=== PATIENT | male | born 1990 | race Caucasian/White ===

== ENCOUNTER 2017-04-17 14:11 | Outpatient (CLI) | payer SELFPAY ==
[~2017-04-17] VITALS: Ht 188 cm; Wt 74.8 kg
== END 2017-04-17 15:05 ==
LOC: PREOP 14:11
PROVIDERS: ATTEND Surgery
DX: Z01.818 Encounter for other preprocedural examination (principal); L72.3 Sebaceous cyst

== ENCOUNTER 2017-04-20 08:03 | Day surgery (SDC) | payer OTHER ==
[~2017-04-20] VITALS: Ht 188 cm; Wt 74.8 kg
[2017-04-20] MEDS ORDERED: ceFAZolin 1,000 MG (ANCEF) VIAL ONE (08:30)
[2017-04-20] MEDS ORDERED: NS (IVPB) 50 ML ONE (08:30)
[2017-04-20 08:45] VITALS: BP 146/67
[2017-04-20] MEDS ORDERED: LACTATED RINGERS 1,000 ML IV ONE ×2 (08:45→09:20)
[2017-04-20] MEDS ORDERED: ceFAZolin 1 GM/NS 50 ML IVPB IV ONE ×2 (08:45)
[2017-04-20] MEDS ORDERED: SEVOFLURANE (ULTANE) 15 ML INHAL SOLN ONE ×3 (09:20→09:54)
[2017-04-20] MEDS ORDERED: DEXAMETHASONE PF 10 MG/ML (DECADRON) VIAL ONE (09:20)
[2017-04-20] MEDS ORDERED: proPOfol 200 MG/20 ML (DIPRIVAN) VIAL IV ONE (09:20)
[2017-04-20] MEDS ORDERED: LIDOCAINE PF 2% 5 ML (XYLOCAINE) VIAL ONE (09:20)
[2017-04-20] MEDS ORDERED: MIDAZOLAM 2 MG/2 ML (VERSED) VIAL ONE (09:20)
[2017-04-20] MEDS ORDERED: HURRICAINE EXT TUBE (BENZOCAINE) ONE (09:20)
[2017-04-20] MEDS ORDERED: fentaNYL INJECTION 100 MCG/2 ML AMP ONE (09:21)
[2017-04-20] MEDS ORDERED: BUP/EPI 0.25% 1:200,000 (MARCAINE) 10 ML VIAL IJ ONE (09:24)
[2017-04-20] MEDS ORDERED: ATRACURIUM 50 MG/5 ML (TRACRIUM) IV ONE (09:24)
--- NOTE | 2017-04-20 09:33 | Progress Note-Pre Operative ---
Pre-Operative Progress Note H&P Reviewed The H&P was reviewed, patient examined and no changes noted. Date Seen by Provider: Apr 20, 2017 Time Seen by Provider: :33 Date H&P Reviewed: Apr 20, 2017 Time H&P Reviewed: :33 Pre-Operative Diagnosis: Sebaceous cyst left mandibular region HARLEEN LOPEZ MD Apr 20, 2017 9:33 am
[2017-04-20] MEDS ORDERED: HYDR-3812 PO (10:08)
--- NOTE | 2017-04-20 10:08 | Progress Note-Post Operative ---
Post-Operative Progess Note Surgeon (s)/Telecommunications Analyst (s) Surgeon HARLEEN LOPEZ MD Telecommunications Analyst: not applicable Pre-Operative Diagnosis Sebaceous cyst left mandibular region Post-Operative Diagnosis same Procedure & Operative Findings Date of Procedure 04/20/17 Procedure Performed/Findings excision Anesthesia Type Gen. Estimated Blood Loss Estimated blood loss (mL): minimal Specimens/Packing Specimens Removed sebaceous cyst HARLEEN LOPEZ MD Apr 20, 2017 10:08 am
--- NOTE | 2017-04-20 10:09 | Discharge Inst-Simple/Standard ---
Discharge Inst-Standard Discharge Medications New, Converted or Re-Newed RX: RX on Chart Patient Instructions/Follow Up Plan of Care/Instructions/FU: dressings off in 48 hours. Follow-up when necessary. No sutures to be removed Activity as Tolerated: Yes Discharge Diet: No Restrictions HARLEEN LOPEZ MD Apr 20, 2017 10:09 am
--- NOTE | 2017-04-20 10:28 | OPERATIVE REPORT ---
DATE OF SERVICE: 04/20/2017 PREOPERATIVE DIAGNOSIS: A 2 cm sebaceous cyst, left mandibular region. POSTOPERATIVE DIAGNOSIS: A 2 cm sebaceous cyst, left mandibular region. OPERATION: Excision. SURGEON: Harleen Lopez MD ANESTHESIA: General anesthesia. BLOOD LOSS: Minimal. FLUIDS: 800 mL of crystalloid. TYPE OF WOUND: Type 1 (clean wound). INDICATION FOR PROCEDURE: This gentleman presented with a sebaceous cyst involving the left mandibular region. He was offered excision under general anesthetic. Informed consent was obtained after reviewing the operative details and highlighting the complications of postop hematoma, wound infection and a very low incidence of injury to the marginal mandibular nerve. DESCRIPTION OF PROCEDURE: He was placed supine on the operating table and general anesthesia induced using a laryngeal mask airway. A gram of Ancef was administered intravenously as prophylaxis against wound infection. The left mandibular region was prepared and draped in the usual sterile manner. Pre-emptive analgesia was established using 0.5% Marcaine with epinephrine. An elliptical incision about 3.5 cm long was made and the cyst excised intact. Hemostasis was achieved using cautery and the incision closed using 3-0 Vicryl for the subcutaneous tissue and 4-0 Vicryl for skin, in a subcuticular fashion. He tolerated the procedure well, was extubated in the operating room and taken to the recovery room in stable condition. Addison, sponges and instruments were correct at the end of the operation. Job ID: [id number] DocumentID: [id number] Dictated Date: 04/20/2017 10:07:38 Lining Maker Date: 04/20/2017 10:27:16 Dictated By: HARLEEN LOPEZ MD [facility]
[2017-04-20] MEDS ORDERED: morphine INJ 10 MG/ML 1ML (SYR OR VIAL) IVP PRN (10:30)
[2017-04-20 11:00] VITALS: BP 123/73
[2017-04-20 11:30] VITALS: BP 130/80
[2017-04-20 11:40] VITALS: BP 130/80
== END 2017-04-20 11:40 | disposition home or self-care (01) ==
LOC: SDC 08:03
PROVIDERS: ATTEND Surgery
DX: L72.3 Sebaceous cyst (principal)
CPT/HCPCS: 87081

== ENCOUNTER 2017-12-17 19:14 | Emergency (ER) | payer SELFPAY ==
[~2017-12-17] VITALS: Ht 185.4 cm; Wt 69.9 kg
[~2017-12-17 19:14] MED LIST: ACHD5005 PO
--- OUTSIDE RECORDS SUMMARY | 2017-12-17 19:20 | XMS REPORT | Continuity of Care Document ---
Author Author [facility] Organization [facility] Address Unknown Phone Unavailable Allergies Active Description Code Type Severity Reaction Onset Reported/Identified Relationship to Patient Clinical Status Yes No Known Drug Allergies [id number] Drug Allergy Unknown N/A 04/17/2017 Medications There is no data. Problems Date Dx Coded Attending Type Code Diagnosis Diagnosed By 04/17/2017 Ot 272.4 HYPERLIPIDEMIA NEC/NOS 04/17/2017 ADAM ABDALLA MD Ot 717.9 INT DERANGEMENT KNEE NOS 04/17/2017 GLENDY CHINCHILLA Ot 427.61 ATRIAL PREMATURE BEATS 04/17/2017 GLENDY CHINCHILLA Ot 786.50 CHEST PAIN NOS 04/17/2017 GLENDY CHINCHILLA Ot V17.3 FAM HX-ISCHEM HEART DIS 04/17/2017 JESSICA ACEVEDO, HARLEEN Chinchilla Ot L72.3 SEBACEOUS CYST 04/17/2017 JESSICA ACEVEDO, HARLEEN Chinchilla Ot Z01.818 ENCOUNTER FOR OTHER PREPROCEDURAL EXAMIN 04/17/2017 Ot 272.4 HYPERLIPIDEMIA NEC/NOS 04/17/2017 ADAM ABDALLA MD Ot 717.9 INT DERANGEMENT KNEE NOS 04/17/2017 GLENDY CHINCHILLA Ot 427.61 ATRIAL PREMATURE BEATS 04/17/2017 GLENDY CHINCHILLA Ot 786.50 CHEST PAIN NOS 04/17/2017 GLENDY CHINCHILLA Ot V17.3 FAM HX-ISCHEM HEART DIS 04/20/2017 Ot 272.4 HYPERLIPIDEMIA NEC/NOS 04/20/2017 ADAM ABDALLA MD Ot 717.9 INT DERANGEMENT KNEE NOS 04/20/2017 GLENDY CHINCHILLA Ot 427.61 ATRIAL PREMATURE BEATS 04/20/2017 GLENDY CHINCHILLA Ot 786.50 CHEST PAIN NOS 04/20/2017 GLENDY CHINCHILLA Ot V17.3 FAM HX-ISCHEM HEART DIS 04/20/2017 JESSICA ACEVEDO, HARLEEN Ch[place]illa Ot L72.3 SEBACEOUS CYST 04/23/2017 JESSICA ACEVEDO, HARLEEN Ch[place]illa Ot L72.3 SEBACEOUS CYST 04/28/2017 JESSICA ACEVEDO, HARLEEN Chinchilla Ot L72.3 SEBACEOUS CYST 05/23/2017 JESSICA ACEVEDO, HARLEEN Chinchilla Ot L72.3 SEBACEOUS CYST Procedures There is no data. Results Test Result Range Methicillin resistant Staphylococcus aureus (MRSA) screening culture - 08:40 Methicillin resistant Staphylococcus aureus (MRSA) screening culture NEG NRG Encounters ACCT No. Visit Date/Time Discharge Status Pt. Type Provider Facility Loc./Unit Complaint [id number] 04/20/2017 08:03:00 04/20/2017 11:40:00 DIS Outpatient HARLEEN LOPEZ MD [facility] SDC SEBACEOUS CYST [id number] 04/17/2017 14:11:00 04/17/2017 15:05:00 DIS Outpatient HARELEN LOPEZ MD [facility] PREOP SEBACEOUS CYST [id number] 01/11/2016 15:30:00 01/11/2016 23:59:59 CLS Outpatient GUILHERME VAZ [facility] QUICK [id number] 06/25/2014 08:36:00 06/25/2014 23:59:59 CLS Outpatient GLENDY CHINCHILLA [facility] LAB CAD,PAC,CP [id number] 01/08/2014 15:06:00 01/08/2014 23:59:59 CLS Outpatient ADAM ABDALLA MD [facility] RAD DERANGMENT OF KNEE [id number] 06/16/2013 16:25:00 06/16/2013 23:59:59 CLS Outpatient [id number] 05/27/2013 13:03:00 05/27/2013 23:59:59 CLS Outpatient [id number] 04/02/2013 16:23:00 04/02/2013 23:59:59 CLS Outpatient [id number] 12/17/2017 19:16:00 ACT Emergency CESAR ROSE MD [facility] ER "BAD ITCH SPOT IN THROAT",POSS FEVER [id number] 04/17/2012 10:17:00 Document Registration
[2017-12-17] MEDS ORDERED: NS IV 1000 ML 1,000 ML IV ONE (21:08)
[2017-12-17 21:15] LABS: BASOPHILS % (AUTO) 0 % (0-10); EOSINOPHILS # (AUTO) 0.2 10^3/uL (0.0-0.3); EOSINOPHILS % (AUTO) 2 % (0-10); HEMATOCRIT 44 % (40-54); HEMOGLOBIN 15.1 G/DL (13.3-17.7); LYMPHOCYTES # (AUTO) 1.4 X 10^3 (1.0-4.0); LYMPHOCYTES % (AUTO) 15 % (12-44); MEAN CORPUSCULAR HEMOGLOBIN 32 PG (25-34); MEAN CORPUSCULAR HGB CONC 34 G/DL (32-36); MEAN CORPUSCULAR VOLUME 93 FL (80-99); MEAN PLATELET VOLUME 10.4 FL (7.4-10.4); MONOCYTES # (AUTO) 1.1 X 10^3 (0.0-1.0); MONOCYTES % (AUTO) 12 % (0-12); NEUTROPHILS # (AUTO) 6.5 X 10^3 (1.8-7.8); NEUTROPHILS % (AUTO) 70 % (42-75); PLATELET COUNT 233 10^3/uL (130-400); RED BLOOD COUNT 4.71 10^6/uL (4.35-5.85); RED CELL DISTRIBUTION WIDTH 12.3 % (10.0-14.5); WHITE BLOOD COUNT 9.3 10^3/uL (4.3-11.0)
[2017-12-17] MEDS ORDERED: ACETAMINOPHEN 500 MG TAB (TYLENOL) PO PRN (21:15)
[2017-12-17 21:22] LABS: PROTHROMBIN TIME PATIENT 13.5 SEC (12.2-14.7)
[2017-12-17 21:29] LABS: BILIRUBIN,URINE NEGATIVE (NEGATIVE); CLARITY,URINE CLEAR; COLOR,URINE YELLOW; GLUCOSE, URINE (UA) NEGATIVE (NEGATIVE); KETONES,URINE NEGATIVE (NEGATIVE); LEUKOCYTE ESTERASE ,URINE 1+ (NEGATIVE); NITRITE,URINE NEGATIVE (NEGATIVE); PH,URINE 7 (5-9); PROTEIN,URINE NEGATIVE (NEGATIVE); UROBILINOGEN,URINE NORMAL (NORMAL)
[2017-12-17 21:33] LABS: ALBUMIN 4.4 GM/DL (3.2-4.5); BILIRUBIN,TOTAL 0.4 MG/DL (0.1-1.0); CALCIUM 9.5 MG/DL (8.5-10.1); CREATININE SERUM 1.42 MG/DL (0.60-1.30); POTASSIUM 3.8 MMOL/L (3.6-5.0); TOTAL PROTEIN 7.8 GM/DL (6.4-8.2)
[2017-12-17 21:41] LABS: AMORPHOUS SEDIMENT,UR FEW AMOR URATES /LPF; WBC,URINE 0-2 /HPF
--- NOTE | 2017-12-17 22:26 | ED Cough/URI ---
General Chief Complaint: Fever-Adult/Adol Stated Complaint: "BAD ITCH SPOT IN THROAT",POSS FEVER Nursing Triage Note: PATIENT STATES THAT HE HAS HAD FEVERS OFF AND ON X5 DAYS. ON SUNDAY HE NOTICED A SORENESS IN HIS THROAT THAT HAS NOT GONE AWAY. Source: patient Exam Limitations: no limitations History of Present Illness Date Seen by Provider: Dec 17, 2017 Time Seen by Provider: 21:24 Initial Comments Here with report of fever on and off for the last 5 days and was actually doing better on Sunday but came back significantly today. Arrives pale with a fever. Denies breathing problems. Does complain of sore throat and has significant cough that he is worried about having pneumonia. Timing/Duration: week, getting worse Severity/Quality: moderate, dry cough Prior Episodes/Possible Cause: occasional episodes Associated Symptoms: cough, fever/chills, muscle aches, nasal congestion, nasal drainage, sore throat Allergies and Home Medications Allergies Coded Allergies: No Known Drug Allergies (Unverified , 04/17/17) Home Medications Hydrocodone Bit/Acetaminophen 1 Each Tablet, 1-2 TAB PO 4-6HR PRN for PAIN-MILD TO MODERATE, #20 Ref 0 Prescribed by: HARLEEN LOPEZ on 04/20/17 1008 Constitutional: see HPI, chills, fever EENTM: nose congestion, throat pain Respiratory: No short of breath, No wheezing Cardiovascular: no symptoms reported Gastrointestinal: no symptoms reported Genitourinary: no symptoms reported Musculoskeletal: see HPI, muscle pain, No muscle stiffness Skin: no symptoms reported All Other Systems Reviewed Negative Unless Noted: Yes Past Fsbcxkb-Kujmxm-Yfhgpn Hx Patient Social History Alcohol Use: Rarely Uses Recreational Drug Use: No Smoking Status: Never a Smoker 2nd Hand Smoke Exposure: No Recent Foreign Travel: No Contact w/Someone Who Travel: No Recent Infectious Disease Expo: No Recent Hopitalizations: No Seasonal Allergies Seasonal Allergies: No Surgeries History of Surgeries: Yes (wisdom teeth) Respiratory History of Respiratory Disorde: No Cardiovascular History of Cardiac Disorders: No Neurological History of Neurological Disord: No Gastrointestinal History of Gastrointestinal Di: No Musculoskeletal History of Musculoskeletal Dis: No Endocrine History of Endocrine Disorders: No Cancer History of Cancer: No Psychosocial History of Psychiatric Problem: No Integumentary History of Skin or Integumenta: No Blood Transfusions History of Blood Disorders: No Reviewed Nursing Assessment Reviewed/Agree w Nursing PMH: Yes Family Medical History Significant Family History: No Pertinent Family Hx Physical Exam Vital Signs Vital Sign - Last 12Hours 12/17/17 19:33 Temp 98.6 Pulse 86 Resp 20 B/P (MAP) 143/75 (97) Pulse Ox 95 O2 Delivery Room Air Capillary Refill : Less Than 3 Seconds General Appearance: WD/WN, no apparent distress HEENT: PERRL/EOMI, pharynx normal Neck: full range of motion, supple Respiratory: lungs clear, normal breath sounds Cardiovascular: regular rate, rhythm, no murmur Gastrointestinal: non tender, soft Extremities: non-tender, normal inspection Neurologic/Psychiatric: alert, oriented x 3 Skin: normal color, warm/dry Focused Exam Evaluation Lactate Level Laboratory Tests 12/17/17 21:20: Lactic Acid Level 0.89 Lactic Acid Level Laboratory Tests Test 12/17/17 21:20 Lactic Acid Level 0.89 MMOL/L (0.50-2.00) Progress/Results/Core Measures Suspected Sepsis Recent Fever Within 48 Hours: Yes Infection Criteria Present: Suspected New Infection New/Unexplained Altered Menta: No Sepsis Screen: No Definite Risk Sepsis Diagnosis: SIRS Temperature:98.6 Pulse: 86 Respiratory Rate: 20 Laboratory Tests 12/17/17 21:05: White Blood Count 9.3 Blood Pressure 143 /75 Mean: 97 Laboratory Tests 12/17/17 21:20: Lactic Acid Level 0.89 Laboratory Tests 12/17/17 21:05: Creatinine 1.42H, INR Comment 1.0, Platelet Count 233, Total Bilirubin 0.4 Results/Orders Lab Results Laboratory Tests Test 12/17/17 21:05 12/17/17 21:20 12/17/17 21:24 Range/Units White Blood Count 9.3 4.3-11.0 10^3/uL Red Blood Count 4.71 4.35-5.85 10^6/uL Hemoglobin 15.1 13.3-17.7 G/DL Hematocrit 44 40-54 % Mean Corpuscular Volume 93 80-99 FL Mean Corpuscular Hemoglobin 32 25-34 PG Mean Corpuscular Hemoglobin Concent 34 32-36 G/DL Red Cell Distribution Width 12.3 10.0-14.5 % Platelet Count 233 130-400 10^3/uL Mean Platelet Volume 10.4 7.4-10.4 FL Neutrophils (%) (Auto) 70 42-75 % Lymphocytes (%) (Auto) 15 12-44 % Monocytes (%) (Auto) 12 0-12 % Eosinophils (%) (Auto) 2 0-10 % Basophils (%) (Auto) 0 0-10 % Neutrophils # (Auto) 6.5 1.8-7.8 X 10^3 Lymphocytes # (Auto) 1.4 1.0-4.0 X 10^3 Monocytes # (Auto) 1.1 H 0.0-1.0 X 10^3 Eosinophils # (Auto) 0.2 0.0-0.3 10^3/uL Basophils # (Auto) 0.0 0.0-0.1 10^3/uL Prothrombin Time 13.5 12.2-14.7 SEC INR Comment 1.0 0.8-1.4 Activated Partial Thromboplast Time 31 24-35 SEC Sodium Level 141 135-145 MMOL/L Potassium Level 3.8 3.6-5.0 MMOL/L Chloride Level 103 98-107 MMOL/L Carbon Dioxide Level 26 21-32 MMOL/L Anion Gap 12 5-14 MMOL/L Blood Urea Nitrogen 16 7-18 MG/DL Creatinine 1.42 H 0.60-1.30 MG/DL Estimat Glomerular Filtration Rate 60 BUN/Creatinine Ratio 11 Glucose Level 107 H 70-105 MG/DL Calcium Level 9.5 8.5-10.1 MG/DL Total Bilirubin 0.4 0.1-1.0 MG/DL Aspartate Amino Transf (AST/SGOT) 22 5-34 U/L Alanine Aminotransferase (ALT/SGPT) 21 0-55 U/L Alkaline Phosphatase 70 40-136 U/L Total Protein 7.8 6.4-8.2 GM/DL Albumin 4.4 3.2-4.5 GM/DL Lactic Acid Level 0.89 0.50-2.00 MMOL/L Urine Color YELLOW Urine Clarity CLEAR Urine pH 7 5-9 Urine Specific [place] 1.020 1.016-1.022 Urine Protein NEGATIVE NEGATIVE Urine Glucose (UA) NEGATIVE NEGATIVE Urine Ketones NEGATIVE NEGATIVE Urine Nitrite NEGATIVE NEGATIVE Urine Bilirubin NEGATIVE NEGATIVE Urine Urobilinogen NORMAL NORMAL MG/DL Urine Leukocyte Esterase 1+ H NEGATIVE Urine RBC (Auto) NEGATIVE NEGATIVE Urine RBC NONE /HPF Urine WBC 0-2 /HPF Urine Crystals PRESENT H /LPF Urine Amorphous Sediment FEW AMBERLY URATES H /LPF Urine Bacteria NONE /HPF Urine Casts NONE /LPF Urine Mucus SMALL H /LPF Urine Culture Indicated NO Micro Results Microbiology 12/17/17 Influenza Types A,B Antigen (COCO) - Final, Complete My Orders Orders - CESAR ROSE MD Cbc With Automated Diff (12/17/17 21:08) Comprehensive Metabolic Panel (12/17/17 21:08) Lactic Acid Analyzer (12/17/17 21:08) Blood Culture (12/17/17 21:08) Sputum Culture (12/17/17 21:08) Ua Culture If Indicated (12/17/17 21:08) Protime With Inr (12/17/17 21:08) Partial Thromboplastin Time (12/17/17 21:08) Chest 1 View, Ap/Pa Only (12/17/17 21:08) O2 (12/17/17 21:08) Acetaminophen Tablet (Tylenol Tablet) (12/17/17 21:15) Saline Lock/Iv-Start (12/17/17 21:08) Vital Signs Adult Sepsis Patie Q1H (12/17/17 21:08) Remove Rings In Anticipation O (12/17/17 21:08) Influenza A And B Antigens (12/17/17 21:08) Ns Iv 1000 Ml (Sodium Chloride 0.9%) (12/17/17 21:08) Medications Given in ED Current Medications Medications Dose Ordered Sig/Fanta Route Start Time Stop Time Status Last Admin Dose Admin Acetaminophen 1,000 mg ONCE PRN PO 12/17/17 21:15 12/17/17 21:29 DC 12/17/17 21:28 1,000 MG Sodium Chloride 1,000 ml @ 0 mls/hr Q0M ONCE IV 12/17/17 21:08 12/17/17 21:10 DC 12/17/17 21:28 0 MLS/HR Vital Signs/I&O Vital Sign - Last 12Hours 12/17/17 19:33 Temp 98.6 Pulse 86 Resp 20 B/P (MAP) 143/75 (97) Pulse Ox 95 O2 Delivery Room Air Capillary Refill : Less Than 3 Seconds Blood Pressure Mean: 97 Progress Note : Progress Note Seen and evaluated. IV, labs, UA, normal saline 1 L bolus, chest x-ray, blood cultures and lactic acid due to presentation with pale and diaphoretic. Monitor patient. Tylenol 1 g by mouth given. 0: Chest x-ray negative. Overall much improved after fluids. Does appear to have mild dehydration and mild acute renal insufficiency. Patient is influenza positive. He has had this for 5 days and is outside of treatment window for Tamiflu currently. Discharged home with return precautions. Patient verbalize understanding instructions and agreement with plan. Diagnostic Imaging Diagonstic Imaging: Xray Plain Films/CT/US/NM/MRI: chest Comments No acute findings. 1 view chest x-ray Reviewed: Reviewed by Me Departure Impression Impression: Primary Impression: Influenza Additional Impression: Dehydration Disposition: 01 HOME, SELF-CARE Condition: Improved Departure-Patient Inst. Decision time for Depature: 22:27 Referrals: DIANA SCHWARTZ DO (PCP/Family) Primary Care Physician Patient Instructions: Dehydration, Adult (DC), Fever, Adult (DC), Flu, Adult ( DC) CESAR ROSE MD Dec 17, 2017 22:26
[2017-12-17 22:33] VITALS: BP 143/75
--- NOTE | 2017-12-18 07:35 | Diagnostic Imaging Report ---
INDICATION: Fever for 5 days, soreness and sore throat. EXAMINATION: Frontal chest, 12/17/2017. COMPARISON: 12/20/2009. FINDINGS: The cardiomediastinal silhouette is unremarkable. The pulmonary vasculature is within normal limits. The lungs and pleural spaces are clear. IMPRESSION: No evidence of an acute cardiopulmonary process. Dictated by: Dictated on workstation # [id number]
== END 2017-12-17 22:35 | disposition home or self-care (01) ==
LOC: EDUNIT# 19:14 → ER 19:16
DX: J11.1 Influenza due to unidentified influenza virus with other respiratory manifestations (principal); E86.0 Dehydration
CPT/HCPCS: 36415; 71045; 80053; 81000; 83605; 85025; 85610; 85730; 87040; 87804; 96360

== ENCOUNTER 2021-05-21 19:47 | Emergency (ER) | payer BC ==
[~2021-05-21] VITALS: Ht 185 cm; Wt 73.6 kg
--- NOTE | 2021-05-21 20:09 | ED General ---
General Chief Complaint: General Problems/Pain Stated Complaint: R SIDE LYMPH NODES SWOLLEN/R SIDE FACE/ARM NUMB Nursing Triage Note: Patient states he began having swollen lymph nodes on Sunday and tonight he has right shoulder pain extending down into his right arm. He advised that he was seen Sunday at [facility] and they stated his liver enzymes were elevated. He denies fever but states he felt like he had chills on sunday and had a headache. He advised that Dr. Vaughn told him that she felt it may be a tick related illness and if his symptoms worsened to be seen in the ER. Source of Information: Patient Exam Limitations: No Limitations History of Present Illness Date Seen by Provider: May 21, 2021 Time Seen by Provider: 20:07 Initial Comments To ER with some lymph nodes swelling to the right side of the neck since Sunday of this past week. They were initially swollen but then receded and then recurred. The left side seems unaffected. No pain with swallowing. Last week he did have some chills and a headache but that is been gone for several days. He saw [facility] and had some labs drawn showing elevated liver function tests within the past month. Strep was negative mono was pending. He is also had an ongoing rash for about 5 years that seems to be helped by Lotrimin ultra cream. Timing/Duration: 1-2 Days Severity: Moderate Associated Systoms: Denies Symptoms Allergies and Home Medications Allergies Coded Allergies: No Known Drug Allergies (Unverified , 04/17/17) Home Medications Fluconazole 150 Mg Tablet, 300 MG PO WEEK Prescribed by: JENNIE HICKS on 05/21/212037 Hydrocodone Bit/Acetaminophen 1 Each Tablet, 1-2 TAB PO 4-6HR PRN for PAIN-MILD TO MODERATE Prescribed by: HARLEEN LOPEZ on 04/20/17 1008 Selenium Sulfide 180 Ml Shampoo, 180 ML TP DAILY apply and leave on for 10 minutes during shower, then wash off. Prescribed by: JENNIE HICKS on 05/21/212037 Patient Home Medication List Home Medication List Reviewed: Yes Review of Systems Review of Systems Constitutional: see HPI; No chills, No fever, No malaise, No weakness EENTM: see HPI Respiratory: no symptoms reported; No cough, No short of breath Cardiovascular: no symptoms reported Genitourinary: no symptoms reported Musculoskeletal: no symptoms reported Skin: no symptoms reported Psychiatric/Neurological: No Symptoms Reported Hematologic/Lymphatic: No Symptoms Reported Immunological/Allergic: no symptoms reported Past Mdiohry-Lddbbq-Eyvvdx Hx Seasonal Allergies Seasonal Allergies: No Past Medical History Surgeries: Yes (wisdom teeth) Respiratory: No Cardiac: No Neurological: No Gastrointestinal: No Musculoskeletal: No Endocrine: No Cancer: No Psychosocial: No Integumentary: No Blood Disorders: No Family Medical History No Pertinent Family Hx Physical Exam Vital Signs Vital Signs - First Documented 05/21/21 19:56 Temp 36.6 Pulse 91 Resp 18 B/P (MAP) 151/109 (123) Pulse Ox 99 O2 Delivery Room Air Capillary Refill : Less Than 3 Seconds Height, Weight, BMI Height: 6'1.00" Weight: 154lbs. 0oz. [id number]; 21.00 BMI Method:Stated General Appearance: No Apparent Distress, WD/WN, Thin, Other (Alert and oriented no distress very pleasant. Vitals are stable. Does have some obvious swelling to the right side of his neck.) Eyes: Bilateral Eye Normal Inspection, Bilateral Eye PERRL, Bilateral Eye EOMI HEENT: PERRL/EOMI, TMs Normal, Normal ENT Inspection, Pharynx Normal Neck: Full Range of Motion; No Lymphadenopathy (L); Lymphadenopathy (R) Respiratory: Normal Breath Sounds, No Accessory Muscle Use, No Respiratory Distress Cardiovascular: Regular Rate, Rhythm, Normal Peripheral Pulses Gastrointestinal: Normal Bowel Sounds, Non Tender, Soft Extremity: Normal Capillary Refill, Normal Inspection Neurologic/Psychiatric: Alert, Oriented x3 Skin: Normal Color, Warm/Dry, Rash (He does have a faint slightly erythematous rash to his torso that looks to be a tinea versicolor) Progress/Results/Core Measures Suspected Sepsis SIRS Temperature: Pulse: 91 Respiratory Rate: 18 Laboratory Tests 05/21/21 20:19: White Blood Count 7.9 Blood Pressure 151 /109 Mean: 123 Laboratory Tests 05/21/21 20:19: Creatinine 1.42H, Platelet Count 168, Total Bilirubin 0.6 Results/Orders Lab Results Laboratory Tests Test 05/21/21 20:19 Range/Units White Blood Count 7.9 4.3-11.0 10^3/uL Red Blood Count 4.67 4.30-5.52 10^6/uL Hemoglobin 14.5 13.3-17.7 g/dL Hematocrit 43 40-54 % Mean Corpuscular Volume 93 80-99 fL Mean Corpuscular Hemoglobin 31 25-34 pg Mean Corpuscular Hemoglobin Concent 34 32-36 g/dL Red Cell Distribution Width 11.9 10.0-14.5 % Platelet Count 168 130-400 10^3/uL Mean Platelet Volume 10.1 9.0-12.2 fL Immature Granulocyte % (Auto) 0 % Neutrophils (%) (Auto) 24 L 42-75 % Lymphocytes (%) (Auto) 66 H 12-44 % Monocytes (%) (Auto) 8 0-12 % Eosinophils (%) (Auto) 1 0-10 % Basophils (%) (Auto) 2 0-10 % Neutrophils # (Auto) 1.9 1.8-7.8 10^3/uL Lymphocytes # (Auto) 5.2 H 1.0-4.0 10^3/uL Monocytes # (Auto) 0.6 0.0-1.0 10^3/uL Eosinophils # (Auto) 0.1 0.0-0.3 10^3/uL Basophils # (Auto) 0.1 0.0-0.1 10^3/uL Immature Granulocyte # (Auto) 0.0 0.0-0.1 10^3/uL Neutrophils % (Manual) 35 % Lymphocytes % (Manual) 13 % Monocytes % (Manual) 10 % Eosinophils % (Manual) 0 % Basophils % (Manual) 0 % Band Neutrophils 0 % Reactive Lymphocytes 42 % Smudge Cells SLIGHT Sodium Level 140 135-145 MMOL/L Potassium Level 4.4 3.6-5.0 MMOL/L Chloride Level 102 98-107 MMOL/L Carbon Dioxide Level 24 21-32 MMOL/L Anion Gap 14 5-14 MMOL/L Blood Urea Nitrogen 13 7-18 MG/DL Creatinine 1.42 H 0.60-1.30 MG/DL Estimat Glomerular Filtration Rate 59 BUN/Creatinine Ratio 9 Glucose Level 102 70-105 MG/DL Calcium Level 9.4 8.5-10.1 MG/DL Corrected Calcium 9.0 8.5-10.1 MG/DL Total Bilirubin 0.6 0.1-1.0 MG/DL Aspartate Amino Transf (AST/SGOT) 174 H 5-34 U/L Alanine Aminotransferase (ALT/SGPT) 266 H 0-55 U/L Alkaline Phosphatase 156 H 40-136 U/L C-Reactive Protein High Sensitivity 1.85 H 0.00-0.50 MG/DL Total Protein 8.0 6.4-8.2 GM/DL Albumin 4.5 3.2-4.5 GM/DL Monoscreen POSITIVE H NEGATIVE My Orders Orders - JENNIE HICKS APRN Cbc With Automated Diff (05/21/21 20:05) Comprehensive Metabolic Panel (05/21/21 20:05) Monotest (05/21/21 20:05) Hs C Reactive Protein (05/21/21 20:05) Ed Iv/Invasive Line Start (05/21/21 20:05) Iohexol Injection (Omnipaque 350 Mg/Ml 1 (05/21/21 20:30) Received Contrast (Hold Metformin- Contr (05/21/21 20:30) Ns (Ivpb) (Sodium Chloride 0.9% Ivpb Bag (05/21/21 20:30) Ct Neck (Soft Tissue) W (05/21/21 20:22) Manual Differential (05/21/21 20:19) Lactated Ringers (Lr 1000 Ml Iv Solution (05/21/21 20:45) Medications Given in ED Vital Signs/I&O 05/21/21 05/21/21 19:56 21:50 Temp 36.6 Pulse 91 86 Resp 18 16 B/P (MAP) 151/109 (123) 118/67 Pulse Ox 99 98 O2 Delivery Room Air Room Air Capillary Refill : Less Than 3 Seconds Blood Pressure Mean: 123 Departure Impression Primary Impression: Mononucleosis Additional Impression: Tinea versicolor Disposition: 01 HOME, SELF-CARE Condition: Stable Departure-Patient Inst. Decision time for Depature: 20:35 Referrals: NO,LOCAL PHYSICIAN (PCP/Family) Primary Care Physician Patient Instructions: Mononucleosis (DC) Add. Discharge Instructions: 1. Ibuprofen for pain. Expect the lymph nodes to stay swollen for a few weeks. drink plenty of fluids. All discharge instructions reviewed with patient and/or family. Voiced understanding. Scripts Selenium Sulfide (Selenium Sulfide) 180 Ml Shampoo 180 ML TP DAILY for 5 Days, #1 EA apply and leave on for 10 minutes during shower, then wash off. Prov: JENNIE HICKS APRN 7/10/21 Fluconazole (Fluconazole) 150 Mg Tablet 300 MG PO WEEK, #4 TAB Prov: JENNIE HICKS APRN 05/21/21 JENNIE HICKS APRN May 21, 2021 20:09
[2021-05-21 20:26] LABS: BASOPHILS # (AUTO) 0.1 10^3/uL (0.0-0.1); BASOPHILS % (AUTO) 2 % (0-10); EOSINOPHILS # (AUTO) 0.1 10^3/uL (0.0-0.3); EOSINOPHILS % (AUTO) 1 % (0-10); HEMATOCRIT 43 % (40-54); HEMOGLOBIN 14.5 g/dL (13.3-17.7); LYMPHOCYTES # (AUTO) 5.2 10^3/uL (1.0-4.0); LYMPHOCYTES % (AUTO) 66 % (12-44); MEAN CORPUSCULAR HEMOGLOBIN 31 pg (25-34); MEAN CORPUSCULAR HGB CONC 34 g/dL (32-36); MEAN CORPUSCULAR VOLUME 93 fL (80-99); MEAN PLATELET VOLUME 10.1 fL (9.0-12.2); MONOCYTES # (AUTO) 0.6 10^3/uL (0.0-1.0); MONOCYTES % (AUTO) 8 % (0-12); NEUTROPHILS # (AUTO) 1.9 10^3/uL (1.8-7.8); NEUTROPHILS % (AUTO) 24 % (42-75); PLATELET COUNT 168 10^3/uL (130-400); WHITE BLOOD COUNT 7.9 10^3/uL (4.3-11.0)
[2021-05-21] MEDS ORDERED: HOLD METFORMIN - RECEIVED CONTRAST 20 ML VIAL IV SCH (20:30)
[2021-05-21] MEDS ORDERED: NS 100 ML (IVPB) BAG IV ONE (20:30)
[2021-05-21] MEDS ORDERED: IOHEXOL 350 MG/ML 100 ML (OMNIPAQUE 350) VIAL IV ONE (20:30)
[2021-05-21 20:35] LABS: ALBUMIN 4.5 GM/DL (3.2-4.5); POTASSIUM 4.4 MMOL/L (3.6-5.0)
[2021-05-21 20:36] LABS: CALCIUM 9.4 MG/DL (8.5-10.1)
[2021-05-21] MEDS ORDERED: FLUC150T2 PO (20:38)
[2021-05-21] MEDS ORDERED: SELE180S13 TP (20:38)
[2021-05-21 20:39] LABS: BILIRUBIN,TOTAL 0.6 MG/DL (0.1-1.0)
[2021-05-21 20:40] LABS: BAND NEUTROPHILS 0 %; BASOPHILS % (MANUAL) 0 %; EOSINOPHILS % (MANUAL) 0 %; LYMPHOCYTES % (MANUAL) 13 %; MONOCYTES % (MANUAL) 10 %; NEUTROPHILS % (MANUAL) 35 %; REACTIVE LYMPHOCYTES 42 %; SMUDGE CELLS SLIGHT
[2021-05-21 20:41] LABS: CREATININE SERUM 1.42 MG/DL (0.60-1.30)
[2021-05-21] MEDS ORDERED: LACTATED RINGERS 1,000 ML IV SCH (20:45)
[2021-05-21 21:50] VITALS: BP 118/67
--- NOTE | 2021-05-21 22:15 | Diagnostic Imaging Report ---
CLINICAL INDICATION: Patient with right neck swelling. BB marking the area of concern. EXAM: Axial CT scan of the neck soft tissue performed with 75 mL of Omnipaque 350 IV contrast. Sagittal and coronal reformatted images were created. Auto Exposure Controls were utilized during the CT exam to meet ALARA standards for radiation dose reduction. COMPARISON: None. FINDINGS: Limited visualization of the intracranial structures are unremarkable. Orbits and globes are unremarkable. There is consolidation of the right maxillary sinus with chronic bony thickening and sclerosis seen. There is prominence of the nasopharyngeal adenoidal soft tissue and mild prominence of the bilateral palatine tonsils. Airway is patent. Visualized portions of the oral cavity, tongue and sublingual regions show no significant abnormality. There is right-sided lymphadenopathy with largest lymph node measuring 1.8 cm x 1.7 cm in AP x transverse dimension in the right level 2A region. This is near the right neck BB-marker. There is also prominent lymph nodes along the right side of the neck. These may be reactive. There is no neck soft tissue fluid collection or concern for abscess. Thyroid gland and salivary glands show no significant abnormality. Lungs are clear. Cervical spine is unremarkable. IMPRESSION: 1: There is right-sided lymphadenopathy which is in the region of the right neck BB-marker. This is of unknown etiology. There is no evidence of neck soft tissue abscess or fat stranding. 2: There is mild prominence of the posterior nasopharyngeal soft tissue and bilateral palatine tonsils which may be reactive. 3: Paranasal sinus disease. 4: The remainder of this neck CT exam is unremarkable. Dictated by: Dictated on workstation # [id number]
== END 2021-05-21 21:30 | disposition home or self-care (01) ==
LOC: EDUNIT# 19:47 → ER 19:50
DX: B27.90 Infectious mononucleosis, unspecified without complication (principal); B36.0 Pityriasis versicolor
CPT/HCPCS: 36415; 70491; 80053; 85007; 85027; 86141; 86308